=== PATIENT | male | born 1995 | race African-American/Black ===

== ENCOUNTER 2020-07-04 16:12 | Inpatient (IN) | payer MEDICAID, OTHER ==
[~2020-07-04] VITALS: Ht 177.8 cm; Wt 71.8 kg
[2020-07-04 17:26] LABS: AMPHETAMINES LEVEL URINE NEGATIVE (NEGATIVE); BARBITURATES URINE NEGATIVE (NEGATIVE); BENZODIAZEPINES URINE NEGATIVE (NEGATIVE); CANNABINOIDS URINE NEGATIVE (NEGATIVE); COCAINE METABOLITE URINE NEGATIVE (NEGATIVE); METHADONE URINE NEGATIVE (NEGATIVE); OPIATES URINE NEGATIVE (NEGATIVE); PHENCYCLIDINE URINE NEGATIVE (NEGATIVE)
[2020-07-04 17:40] LABS: ACETAMINOPHEN LEVEL < 2.0 UG/ML (10.0-30.0); ALBUMIN 4.5 GM/DL (3.2-5.2); ALT/SGPT 31 U/L (12-78); BILIRUBIN,DIRECT 0.5 MG/DL (0.0-0.2); BILIRUBIN,TOTAL 2.1 MG/DL (0.2-1.0); BLOOD UREA NITROGEN 13 MG/DL (7-18); CALCIUM LEVEL 8.6 MG/DL (8.5-10.1); CARBON DIOXIDE LEVEL 24 MEQ/L (21-32); CHLORIDE LEVEL 109 MEQ/L (98-107); CREATININE FOR GFR 0.87 MG/DL (0.70-1.30); ETHYL ALCOHOL (ETHANOL) 0.181 % (0.000-0.010); GLOMERULAR FILTRATION RATE > 60.0 (>60); GLUCOSE, FASTING 82 MG/DL (70-100); SALICYLATE LEVEL < 1.7 MG/DL (5.0-30.0); SODIUM LEVEL 142 MEQ/L (136-145); THYROID STIMULATING HORMONE 0.295 uIU/ML (0.358-3.740); TOTAL PROTEIN 7.7 GM/DL (6.4-8.2)
[2020-07-04 17:46] LABS: RSV AMPLIFICATION NEGATIVE (NEGATIVE)
[2020-07-04] MEDS ORDERED: LORazepam 2 MG TAB PO STA (18:10)
[2020-07-04] MEDS ORDERED: haloperidoL 5 MG TAB PO STA (18:10)
[2020-07-04] MEDS ORDERED: diphenhydrAMINE 50MG CAP PO ONE (18:15)
[2020-07-04] MEDS ORDERED: AMAN100T PO (18:58)
[2020-07-04] MEDS ORDERED: LATU80TA PO (18:58)
[2020-07-04] MEDS ORDERED: LITH300C PO (18:59)
[2020-07-04 19:14] LABS: HEMATOCRIT 42.6 % (42.0-52.0); HEMOGLOBIN 13.9 g/dl (13.5-17.5); MEAN CORPUSCULAR HEMOGLOBIN 29.6 pg (27.0-33.0); MEAN CORPUSCULAR HGB CONC 32.6 g/dl (32.0-36.5); MEAN CORPUSCULAR VOLUME 90.6 fl (80.0-96.0); PLATELET COUNT, AUTOMATED 343 10^3/uL (150-450); WHITE BLOOD COUNT 4.5 10^3/uL (4.0-10.0)
[2020-07-04] MEDS ORDERED: BENZ0.5T23 PO (20:40)
[2020-07-04] MEDS ORDERED: SAPH1SUB9 SL (20:40)
[2020-07-04] MEDS ORDERED: LORazepam 2 MG TAB PO PRN (22:30)
[2020-07-04] MEDS ORDERED: MAALOX 30 ML SUSP *UDC PO PRN (22:30)
[2020-07-04] MEDS ORDERED: MOM 30ML SUSPENSION UDC PO PRN (22:30)
[2020-07-04] MEDS ORDERED: ACETAMINOPHEN TAB 650MG DOSE (2X325MG) PO PRN (22:30)
[2020-07-05] MEDS: BENZTROPINE 0.5 MG TAB PO SCH ×3 (00:24→21:39)
[2020-07-05] MEDS: THIAMINE 100 MG TAB PO SCH ×3 (00:24→21:39)
[2020-07-05] MEDS: QUEtiapine FUMARATE 50MG TAB PO SCH ×2 (00:25→21:39)
[2020-07-05 03:37] VITALS: BP 127/58
[2020-07-05] MEDS ORDERED: MED REC COMMENT (08:05)
[2020-07-05] MEDS ORDERED: LITH45TASA PO (08:05)
[2020-07-05] MEDS: FOLIC ACID 1 MG TAB PO SCH (10:33)
[2020-07-05] MEDS: LURASIDONE HCL 40 MG TAB (LATUDA) PO SCH (10:33)
[2020-07-05] MEDS: AMANTADINE 100MG TABLET PO SCH (10:33)
[2020-07-05] MEDS: MULTIVITAMINS/MINERALS THERAP 1 TAB PO SCH (10:33)
[2020-07-05 15:57] VITALS: BP 117/59
--- NOTE | 2020-07-05 17:05 | HPEPDOC ---
[facility] Medical History & Physical Date of Admission Jul 04, 2020 Date of Service: Jul 05, 2020 History and Physical CHIEF COMPLAINT: routine medical examination HISTORY OF PRESENT ILLNESS: 25 y/o M with history of schizophrenia brought in by police after being found talking to himself, begging for food, and having bizarre thoughts admitted to the inpatient mental health unit. Hospitalist was asked to do a routine medical exam. Pt requesting qtips to clean his ears. He denies ear pain, tinnitus, ear discharge, fever. no other complaints PAST MEDICAL HISTORY: schizophrenia PAST SURGICAL HISTORY: stitches to his chin s/p accident SOCIAL HISTORY: social etoh 1ppd tobacco use FAMILY HISTORY: unknown ALLERGIES: Please see below. REVIEW OF SYSTEMS: 12 point ROS per HPI . otherwise, negative. HOME MEDICATIONS: Please see below. PHYSICAL EXAMINATION: VITAL SIGNS: see below GENERAL APPEARANCE: HEENT: EOMI moist mm no cervical LAD or thyromegaly cerumen in b/l ears. CARDIOVASCULAR: RRR S1S2 LUNGS: CTAB AEBE ABDOMEN:+BS soft NT ND EXTREMITIES: no c/c/e LABORATORY DATA: See below. ASSESSMENT: 25 y/o M with history of schizophrenia brought in by police after being found talking to himself, begging for food, and having bizarre thoughts admitted to the inpatient mental health unit. Hospitalist was asked to do a routine medical exam. Pt requesting qtips to clean his ears. He denies ear pain, tinnitus, ear discharge, fever. no other complaints Schizophrenia -management by psychiatrist Abnormal TSH -check full thyroid profile to rule out hyperthyroidism. -denies palpitations, diarrhea, and does not require meds for symptoms. cerumen b/l ears -debrox au bid x 5days -qtips prn Hospitalist will sign off. Pls re-consult if new medical issues arise. Vital Signs Vital Signs Date Time Temp Pulse Resp B/P (MAP) Pulse Ox O2 Delivery O2 Flow Rate FiO2 07/05/20 03:37 97 127/58 07/05/20 03:37 97.7 16 98 Room Air Laboratory Data Labs 24H Laboratory Tests 2 07/04/20 16:36: Nucleated Red Blood Cells % (auto) 0.0, Anion Gap 9, Glomerular Filtration Rate > 60.0, Calcium Level 8.6, Total Bilirubin 2.1H, Direct Bilirubin 0.5H, Aspartate Amino Transf (AST/SGOT) 22, Alanine Aminotransferase (ALT/SGPT) 31, Alkaline Phosphatase 112, Total Protein 7.7, Albumin 4.5, Albumin/Globulin Ratio 1.4, Thyroid Stimulating Hormone (TSH) 0.295L, Salicylates Level < 1.7L, Urine Opiates Screen NEGATIVE, Urine Methadone Screen NEGATIVE, Acetaminophen Level < 2.0L, Urine Barbiturates Screen NEGATIVE, Urine Phencyclidine Screen NEGATIVE, Urine Amphetamines Screen NEGATIVE, Urine Benzodiazepines Screen NEGATIVE, Urine Cocaine Metabolite Screen NEGATIVE, Urine Cannabinoids Screen NEGATIVE, Ethyl Alcohol Level 0.181H, Coronavirus (COVID-19)(PCR) NEGATIVE, Influenza Type A (RT-PCR) NEGATIVE, Influenza Type B (RT-PCR) NEGATIVE, Respiratory Syncytial Virus (PCR) NEGATIVE CBC/BMP Laboratory Tests 07/04/20 16:36 Home Medications Scheduled Amantadine HCl (Amantadine) 100 Mg Tablet, 100 MG PO DAILY Asenapine Maleate (Saphris) 2.5 Mg Tab.subl, 2.5 MG SL DAILY Benztropine Mesylate (Benztropine Mesylate) 0.5 Mg Tablet, 0.5 MG PO BID Cunningham Carbonate (Cunningham Carbonate ER) 450 Mg Tablet.er, 900 MG PO QHS for MOOD Lurasidone HCl (Latuda) 80 Mg Tablet, 80 MG PO DAILY Miscellaneous Medications [Med Rec Comment] , for . OBTAINED LIST FROM MOTHER Allergies Coded Allergies: risperidone (Verified Allergy, Severe, ANAPHYLAXIS, 07/05/20) A-FIB/CHADSVASC A-FIB History Current/History of A-Fib/PAF?: No Current PO Anticoag Therapy: No Age/Risk Factor Scoring CHADSVASC: CHADSVASC Response (Comments) Value Age Risk Factor Age < 65 years old 0 Gender Risk Factor Male 0 Hx of CHF No 0 Hx of HTN No 0 Hx of Stroke/TIA/or VTE No 0 Hx of Diabetes No 0 Hx of Vascular Disease No 0 Total 0 Treatment Treatment ordered: NONE RYAN MAURER MD Jul 05, 2020 15:45
[2020-07-05] MEDS: CARBAMIDE PEROXIDE 6.5% OTIC SOLN 15ML AU SCH (18:00)
[2020-07-05 20:30] VITALS: BP 123/76
[2020-07-05] MEDS: LITHIUM CARBONATE 450 MG **CR** TAB PO SCH (21:39)
[2020-07-06 06:33] VITALS: BP 98/62
[2020-07-06] MEDS: FOLIC ACID 1 MG TAB PO SCH (08:25)
[2020-07-06] MEDS: AMANTADINE 100MG TABLET PO SCH (08:25)
[2020-07-06] MEDS: MULTIVITAMINS/MINERALS THERAP 1 TAB PO SCH (08:25)
[2020-07-06] MEDS: THIAMINE 100 MG TAB PO SCH ×2 (08:26→20:21)
[2020-07-06] MEDS: CARBAMIDE PEROXIDE 6.5% OTIC SOLN 15ML AU SCH ×2 (08:26→20:21)
[2020-07-06] MEDS: LURASIDONE HCL 40 MG TAB (LATUDA) PO SCH (08:26)
[2020-07-06] MEDS: BENZTROPINE 0.5 MG TAB PO SCH ×2 (08:26→20:22)
--- NOTE | 2020-07-06 08:28 | MHHPE ---
[facility] HISTORY AND PHYSICAL DATE OF ADMISSION: 07/04/2020 DATE OF EVALUATION: 07/05/2020 HISTORY OF PRESENT ILLNESS: This is a 25-year-old man who was admitted after he was found by the police wandering the streets yelling at people who he thought were trying to kill him. He was telling the police that people were trying to shoot him on the way to the emergency room. He kept on stating that utility workers were out to get him. Patient stated that he needed a gun to get rid of the demon seeds. Patient's mother told police that the patient has a history of schizophrenia and that he has been off of his medications. Police state that yesterday they were called to [facility] where a man there had stolen beer and was eating food inside the store without paying for it. The police thought that he was slightly intoxicated and they gave him a ride home without charges. The patient's mom stated that the patient was diagnosed schizophrenic in 2012. He has had one prior psychiatric admission in [place] in September 2019. Mom says he stopped taking medications since February 2020. He moved here from [place] last year. He lives alone. Apparently, yesterday she did pick him up from his apartment in [facility] because she received a call that the patient was not doing well. She reports that the patient refuses to take medications and that he started to use some drugs and alcohol. While in the emergency room, he became highly agitated to the point where he required chemical restraints. Today, the patient tells me that he is okay, actually he is just very quiet and it is very difficult to get him to say much and get much more information regarding what brought him to the hospital. The patient apparently is on the following medications, or at least was on these medications until he stopped taking them in February. He was attending [facility]. He was on: - Latuda 80 mg every afternoon - amantadine 100 mg once daily - lithium 900 mg nightly - Saphris 2.5 mg sublingual nightly - Cogentin 0.5 mg twice a day PAST PSYCHIATRIC HISTORY: As stated by patient's mom, he was admitted to [facility] in September 2019 and that is probably his only other psychiatric admission. He did deny that he has ever tried to kill himself. FAMILY HISTORY: Unable to obtain. MEDICAL HISTORY: I did not elicit any acute medical problems. ABUSE HISTORY: The patient denies any history of any abuse. SUBSTANCE ABUSE: The patient apparently had been drinking when he was brought to the hospital and mom says that he has been drinking lately and that this tends to go along with his decompensation in the past. He did tell me that he was not using drugs and his toxicology screen was negative for any drugs. REVIEW OF SYSTEMS: Vital signs: Blood pressure 127/58, pulse 97, respirations 16. Appearance: He did not appear to be in any apparent distress. Neuromuscular system: I did not notice any involuntary movements of the extremities or any problems with his gait. All other systems were reviewed and found to be negative. MENTAL STATUS EXAMINATION: This patient is alert and oriented times three. He is guarded. Eye contact fair. He responds with a simple one or two word answer that appears to be appropriate but he is not spontaneous at all. His mood was okay. Affect is flat. He is paranoid. I did not elicit any suicidal ideations or homicidal ideations. Concentration is fair. Memory is grossly intact. Insight and judgment poor. DIAGNOSES: Schizophrenia. Rule out alcohol use disorder. TREATMENT PLAN: At this point, we will continue to monitor the patient for his paranoid thoughts. The patient is willing to start all of the above noted medications. I will make one change however, instead of Saphris 2.5 mg nightly I am going to give him Seroquel 50 mg nightly because I think it is more sedating and it might help him sleep better. The patient did say that he received Seroquel 50 mg last night and he really felt that it helped him sleep and he wants me to continue it. The patient will be discharged with appropriate followup once stable.
[2020-07-06] MEDS ORDERED: INFLUENZA QUADRIVALENT PF VACCINE 0.5ML SYRINGE IM ONE (09:00)
[2020-07-06 09:53] LABS: T UPTAKE 36 % (33-40); THYROID STIMULATING HORMONE 0.359 uIU/ML (0.358-3.740); THYROXINE (T4) 5.6 UG/DL (4.5-12.0)
[2020-07-06 12:47] LABS: THYROGLOBULIN ANTIBODY < 15.0 U/ML (<60.0)
[2020-07-06] MEDS: CARIPRAZINE 1.5MG CAPSULE (VRAYLAR) PO SCH (15:50)
[2020-07-06 17:43] VITALS: BP 121/68
[2020-07-06] MEDS: QUEtiapine FUMARATE 50MG TAB PO SCH (20:21)
[2020-07-06] MEDS: LITHIUM CARBONATE 450 MG **CR** TAB PO SCH (20:22)
[2020-07-07 06:23] VITALS: BP 149/80
[2020-07-07] MEDS: CARIPRAZINE 1.5MG CAPSULE (VRAYLAR) PO SCH (08:24)
[2020-07-07] MEDS: AMANTADINE 100MG TABLET PO SCH (08:24)
[2020-07-07] MEDS: BENZTROPINE 0.5 MG TAB PO SCH ×2 (08:24→21:52)
[2020-07-07] MEDS: THIAMINE 100 MG TAB PO SCH (08:25)
[2020-07-07] MEDS: MULTIVITAMINS/MINERALS THERAP 1 TAB PO SCH (08:25)
[2020-07-07] MEDS: FOLIC ACID 1 MG TAB PO SCH (08:25)
[2020-07-07] MEDS: CARBAMIDE PEROXIDE 6.5% OTIC SOLN 15ML AU SCH ×2 (08:26→21:53)
[2020-07-07] MEDS ORDERED: CARIPRAZINE 1.5MG CAPSULE (VRAYLAR) PO SCH (09:00)
[2020-07-07] MEDS: OLANZapine ORAL DISINTEGRATING TAB 5MG PO PRN (13:18)
[2020-07-07 17:00] VITALS: BP 130/76
--- NOTE | 2020-07-07 17:21 | MHIPNPDOC ---
[facility] Progress Note Progress Note DATE OF SERVICE: 07/07/20 HISTORY: : This is a 25-year-old man who was admitted after he was found by the police wandering the streets yelling at people who he thought were trying to kill him. He was telling the police that people were trying to shoot him on the way to the emergency room. He kept on stating that utility workers were out to get him. Patient stated that he needed a gun to get rid of the demon seeds. Patient's mother told police that the patient has a history of schizophrenia and that he has been off of his medications. Police state that yesterday they were called to [facility] where a man there had stolen beer and was eating food inside the store without paying for it. The police thought that he was slightly intoxicated and they gave him a ride home without charges. The patient's mom stated that the patient was diagnosed schizophrenic in 2012. He has had one prior psychiatric admission in [place] in September 2019. Mom says he stopped taking medications since February 2020. He moved here from [place] last year. He lives alone. Apparently, yesterday she did pick him up from his apartment in [facility] because she received a call that the patient was not doing well. She reports that the patient refuses to take medications and that he started to use some drugs and alcohol. While in the emergency room, he became highly agitated to the point where he required chemical restraints. Today, the patient tells me that he is okay, actually he is just very quiet and it is very difficult to get him to say much and get much more information regarding what brought him to the hospital. VITAL SIGNS: See below. CURRENT MEDICATIONS: See below. MENTAL STATUS EXAMINATION: Patient is a 5-year-old man who was admitted after he was found by the police wandering the streets yelling at people who he thought were trying to kill him. He was found in the room, sleeping. Attempted to get him to engage in conversation but he had limited to say and dozed off to sleep many times in the interview Speech: Is garbled at times, due to drowsiness Language skills are appropriate Thought processes including: linear Thought content: refusing to answer Abstract reasoning, and computation: unable to assess Description of associations: in report he is delusional Description of abnormal or psychotic thoughts: refusing to answer questions about this Judgment: poor Insight: poor Orientation: alert and oriented Recent and remote memory: fair Attention span and concentration: poor Language: fair Fund of knowledge: average Mood: flat/uninterested Affect: flat DIAGNOSES: Schizophrenia. Rule out alcohol use disorder. ASSESSMENT: Approached patient today for interview, he was found lying in bed, had much difficulty staying awake for the interview or was refusing to speak to me. His speech was garbled and it was difficult to understand him. He was guarded and superficial many times in the interview states that he was being followed by people and that they continue to watch him. Patient is observed to be paranoid and delusional and refuses to engage in the interview. MANAGEMENT PLAN: Continue medications, will discharge patient when he is stable TIME SPENT: 25 minutes. Vital Signs Vital Signs Date Time Temp Pulse Resp B/P (MAP) Pulse Ox O2 Delivery O2 Flow Rate FiO2 07/07/20 06:23 98.7 70 14 149/80 (103) 98 Room Air Current Medications Current Medications Medications (Trade) Dose Ordered Sig/Shante Route PRN Reason Start Time Stop Time Status Last Admin Dose Admin Acetaminophen (Tylenol Tab) 650 mg Q6HP PRN PO HEADACHE or DISCOMFORT 07/04/20 22:30 Al Hydrox/Mg Hydrox/Simethicone (Mylanta) 30 ml Q4HP PRN PO HEARTBURN/INDIGESTION 07/04/20 22:30 Amantadine HCl (Symmetrel) 100 mg DAILY PO 07/05/20 09:00 07/07/20 08:24 Benztropine Mesylate (Cogentin) 0.5 mg BID PO 07/04/20 21:00 07/07/20 08:24 Carbamide Peroxide (Debrox) 10 drop BID AU 07/05/20 17:00 07/10/20 09:01 07/07/20 08:26 Cariprazine (Vraylar) 1.5 mg DAILY PO 07/06/20 14:15 07/07/20 08:24 Cariprazine (Vraylar) 1.5 mg DAILY PO 07/07/20 09:00 07/06/20 14:24 DC Folic Acid (Folic Acid) 1 mg DAILY PO 07/05/20 09:00 07/07/20 08:25 Haloperidol (Haldol) 5 mg STAT STAT PO 07/04/20 18:10 07/04/20 18:12 DC 07/04/20 18:17 Home Med (Med Rec Complete!) ASDIRECTED XX 07/04/20 20:45 07/04/20 20:50 DC Samoset Carbonate (Eskalith-Cr) 900 mg QHS PO 07/05/20 21:00 07/06/20 20:22 Lorazepam (Ativan) 1 mg Q4H PRN PO agitation/anxiety 07/04/20 22:30 Lorazepam (Ativan) 2 mg ASDIRECTED PRN PO SEE PROTOCOL 07/04/20 22:30 Lorazepam (Ativan) 2 mg STAT STAT PO 07/04/20 18:10 07/04/20 18:12 DC 07/04/20 18:17 Lurasidone HCl (Latuda) 80 mg DAILY PO 07/05/20 09:00 07/06/20 14:24 DC 07/06/20 08:26 Magnesium Hydroxide (Milk Of Magnesia) 30 ml DAILYPRN PRN PO CONSTIPATION 07/04/20 22:30 Multivitamins (Theragram-M) 1 tab DAILY PO 07/05/20 09:00 07/07/20 08:25 Olanzapine (ZyPREXA ZYDIS) 10 mg Q4HP PRN PO AGITATION/ANXIETY 07/04/20 22:30 07/07/20 13:18 Quetiapine Fumarate (SEROquel) 50 mg QHS PO 07/04/20 21:00 07/06/20 20:21 Thiamine HCl (Thiamine HCl) 100 mg BID PO 07/04/20 21:00 07/07/20 09:01 DC 07/07/20 08:25 Trazodone HCl (Desyrel) 50 mg QHSP PRN PO INSOMNIA 07/04/20 22:30 Allergies Coded Allergies: risperidone (Verified Allergy, Severe, ANAPHYLAXIS, 07/05/20) ARELI GARCIA NP Jul 07, 2020 17:17
[2020-07-07] MEDS: QUEtiapine FUMARATE 50MG TAB PO SCH (21:51)
[2020-07-07] MEDS: LITHIUM CARBONATE 450 MG **CR** TAB PO SCH (21:52)
[2020-07-08 06:20] VITALS: BP 99/58
[2020-07-08] MEDS: MULTIVITAMINS/MINERALS THERAP 1 TAB PO SCH (08:43)
[2020-07-08] MEDS: CARIPRAZINE 1.5MG CAPSULE (VRAYLAR) PO SCH (08:43)
[2020-07-08] MEDS: BENZTROPINE 0.5 MG TAB PO SCH ×2 (08:43→20:06)
[2020-07-08] MEDS: AMANTADINE 100MG TABLET PO SCH (08:43)
[2020-07-08] MEDS: CARBAMIDE PEROXIDE 6.5% OTIC SOLN 15ML AU SCH ×2 (08:43→20:06)
[2020-07-08] MEDS: FOLIC ACID 1 MG TAB PO SCH (08:43)
[2020-07-08] MEDS: OLANZapine ORAL DISINTEGRATING TAB 5MG PO PRN ×2 (10:11→23:54)
--- NOTE | 2020-07-08 14:13 | MHIPN ---
[facility] PROGRESS NOTE DATE: 07/06/2020 HISTORY OF PRESENT ILLNESS: The patient continues to be paranoid. Today he actually told his nurse that he had had an argument with a friend who sent people to watch him and that they were masquerading as cable men. The patient is a little more spontaneous today, but he is still quite paranoid. MENTAL STATUS EXAM: He is alert and oriented times 3. There is no formal thought disorder. Mood is okay. Affect flat. He remains paranoid. He is not suicidal or homicidal. Concentration is fair. Memory intact. Insight and judgment poor. DIAGNOSES: 1. Schizophrenia. 2. Rule out alcohol use disorder. TREATMENT PLAN: At this point we will continue to monitor the patient for his paranoid thinking. The patient agreed to a trial of Vraylar 1.5 mg once daily. I had suggested that we start him on a equipment operator intermodal yard parenteral injection, but he was not receptive to this and so the patient agreed to the Vraylar. He said he had pain on Risperdal before and had side effects and so he was not receptive to Invega Sustenna and he said also he had side effects with Abilify and was not receptive to that. I felt that a parenteral injection might be good because this patient has a history of being noncompliant with his medication.
[2020-07-08] MEDS: LORazepam 1 MG TAB PO PRN ×2 (15:53→23:17)
[2020-07-08 17:50] VITALS: BP 107/66
[2020-07-08] MEDS: QUEtiapine FUMARATE 50MG TAB PO SCH (20:06)
[2020-07-08] MEDS: LITHIUM CARBONATE 450 MG **CR** TAB PO SCH (20:07)
[2020-07-08] MEDS: traZODone 50 MG TAB PO PRN (23:54)
[2020-07-09 06:00] VITALS: BP 133/76
[2020-07-09] MEDS: CARIPRAZINE 3MG CAPSULE (VRAYLAR) PO SCH (08:17)
[2020-07-09] MEDS: MULTIVITAMINS/MINERALS THERAP 1 TAB PO SCH (08:17)
[2020-07-09] MEDS: BENZTROPINE 0.5 MG TAB PO SCH ×2 (08:17→21:54)
[2020-07-09] MEDS: FOLIC ACID 1 MG TAB PO SCH (08:17)
[2020-07-09] MEDS: CARBAMIDE PEROXIDE 6.5% OTIC SOLN 15ML AU SCH ×2 (08:17→21:00)
[2020-07-09] MEDS: AMANTADINE 100MG TABLET PO SCH (08:17)
[2020-07-09] MEDS: LORazepam 1 MG TAB PO PRN (08:18)
--- NOTE | 2020-07-09 14:43 | MHIPN ---
[facility] PROGRESS NOTE DATE: 07/08/2020 HISTORY OF PRESENT ILLNESS: The patient today states that he is "a little tired." He says he did have some frequent awakening at night. She was definitely very paranoid and kept on talking about a lot of mormonism thoughts. Mostly a lot of stuff that is found in the Bible and also upset about some political stuff. I tried to redirect him to talk about the stuff that he had said even yesterday that people are watching him, that people are posing like utility workers, but when I asked him about that he told me that he had not said that before and I could not elicit it today. So far he is tolerating the Vraylar 1.5 mg and he is agreeable to increasing it to 3 mg. MENTAL STATUS EXAM: He is alert and oriented times 3. His eye contact is fairly good. Psychomotor activity was normal. He did have some pressured speech. There were no suicidal or homicidal ideations. He says his mood was tired. Affect appeared to be appropriate. He did seem to be becoming increasingly agitated as he talked about what appears to be his paranoid delusions. Concentration is fair. Memory is intact. Insight and judgment poor. DIAGNOSES: 1. Schizophrenia. 2. Rule out alcohol use disorder. TREATMENT PLAN: At this point the patient continues to be psychotic. He is agreeable to increase the Vraylar to 3 mg once daily.
[2020-07-09] MEDS ORDERED: LORazepam 2 MG TAB PO STA (15:12)
[2020-07-09] MEDS ORDERED: diphenhydrAMINE 50MG CAP PO STA (15:12)
[2020-07-09 18:00] VITALS: BP 148/90
[2020-07-09] MEDS: LITHIUM CARBONATE 450 MG **CR** TAB PO SCH (21:00)
[2020-07-09] MEDS: QUEtiapine FUMARATE 50MG TAB PO SCH (21:55)
[2020-07-10] VITALS (7 sets, daily range): BP systolic 99–131; BP diastolic 63–72
[2020-07-10] MEDS ORDERED: QUEtiapine FUMARATE 50MG TAB PO ONE (02:30)
[2020-07-10] MEDS ORDERED: LORazepam 2 MG/ML VIAL IM STA (03:26)
[2020-07-10] MEDS ORDERED: diphenhydrAMINE 50MG/ML VIAL (J1200) IM STA (03:26)
[2020-07-10] MEDS ORDERED: HALOPERIDOL 5MG/ML VIAL (J1630 PER 1) IM STA (03:26)
[2020-07-10] MEDS ORDERED: HALOPERIDOL 5MG/ML VIAL (J1630 PER 1) As Ordered ONE (03:28)
[2020-07-10] MEDS ORDERED: diphenhydrAMINE 50MG/ML VIAL (J1200) As Ordered ONE (03:30)
[2020-07-10] MEDS ORDERED: LORazepam 2 MG/ML VIAL As Ordered ONE (03:30)
--- NOTE | 2020-07-10 03:37 | IPNPDOC ---
Text Note Date of Service The patient was seen on 07/10/20. NOTE PSYCH CERTIFICATION FACE TO FACE: yes PHYSICIAN ASSESSMENT: The patient was agitated, violent towards staff and not following verbal instructions GEN: irritable / yelling REASON FOR RESTRAINT: The patient was a danger to the staff. DE-ESCALATION INTERVENTIONS ATTEMPTED BEFORE USE OF RESTRAINTS: verbal redirection [MECHANICAL AND/OR CHEMICAL] RESTRAINTS USED LENGTH OF TIME ORDERED IN RESTRAINTS: 4 hours WHEN TO DISCONTINUE RESTRAINTS: When the patient is no longer a threat to to herself or others Post evaluation of restraint due in 24 hours. VS,Fishbone, I+O VS, Fishbone, I+O Vital Signs Date Time Temp Pulse Resp B/P (MAP) Pulse Ox O2 Delivery O2 Flow Rate FiO2 07/09/20 18:00 99.0 72 15 148/90 (109) 100 07/08/20 06:20 Room Air FREDDY MCGINNIS MD Jul 10, 2020 03:37
--- NOTE | 2020-07-10 08:27 | MHIPN ---
[facility] PROGRESS NOTE DATE: 07/09/2020 HISTORY OF PRESENT ILLNESS: The patient today is more calmer than he was yesterday. Speech is less pressured. He tells me that he is feeling okay. His speech tends to be a little more mumbled and sometimes it is hard to understand what he is saying. Today denying that anybody has been watching him so I do not know if he is less paranoid or he is just more guarded today. MENTAL STATUS EXAM: He is alert and oriented times 3. Eye contact is fairly good. Psychomotor activity is normal. As I said today he is not agitated and his speech is not as pressured as it was yesterday. He says that he is doing good. His affect is flat. As I said I am not eliciting paranoid thoughts today. He is not suicidal or homicidal. Concentration is fair. Insight and judgment is poor. DIAGNOSES: 1. Schizophrenia. 2. Rule out schizoaffective disorder versus bipolar disorder. TREATMENT PLAN: At this point we will continue to monitor the patient for paranoid thoughts. We will continue the current medications and continue to titrate them as indicated.
[2020-07-10] MEDS: AMANTADINE 100MG TABLET PO SCH (09:00)
[2020-07-10] MEDS: FOLIC ACID 1 MG TAB PO SCH (09:00)
[2020-07-10] MEDS: BENZTROPINE 0.5 MG TAB PO SCH ×2 (09:00→22:34)
[2020-07-10] MEDS: MULTIVITAMINS/MINERALS THERAP 1 TAB PO SCH (09:00)
[2020-07-10] MEDS: CARBAMIDE PEROXIDE 6.5% OTIC SOLN 15ML AU SCH (09:00)
[2020-07-10] MEDS: CARIPRAZINE 3MG CAPSULE (VRAYLAR) PO SCH (09:00)
[2020-07-10] MEDS: OLANZapine ORAL DISINTEGRATING TAB 5MG PO PRN (19:31)
[2020-07-10] MEDS: QUEtiapine FUMARATE 50MG TAB PO SCH (22:34)
[2020-07-10] MEDS: QUEtiapine FUMARATE 100 MG TAB PO SCH (22:34)
[2020-07-10] MEDS: LITHIUM CARBONATE 450 MG **CR** TAB PO SCH (22:34)
[2020-07-11 06:59] VITALS: BP 139/75
[2020-07-11] MEDS: AMANTADINE 100MG TABLET PO SCH (08:22)
[2020-07-11] MEDS: MULTIVITAMINS/MINERALS THERAP 1 TAB PO SCH (08:22)
[2020-07-11] MEDS: FOLIC ACID 1 MG TAB PO SCH (08:22)
[2020-07-11] MEDS: BENZTROPINE 0.5 MG TAB PO SCH ×2 (08:22→20:13)
[2020-07-11] MEDS: OLANZapine ORAL DISINTEGRATING TAB 5MG PO PRN (10:45)
[2020-07-11 17:49] VITALS: BP 144/82
[2020-07-11] MEDS: LITHIUM CARBONATE 450 MG **CR** TAB PO SCH (20:13)
[2020-07-11] MEDS: QUEtiapine FUMARATE 50MG TAB PO SCH (20:14)
[2020-07-11] MEDS: QUEtiapine FUMARATE 100 MG TAB PO SCH (20:14)
[2020-07-12] MEDS: OLANZapine ORAL DISINTEGRATING TAB 5MG PO PRN ×2 (02:04→15:14)
[2020-07-12 06:48] VITALS: BP 139/74
[2020-07-12] MEDS: BENZTROPINE 0.5 MG TAB PO SCH ×2 (08:10→20:23)
[2020-07-12] MEDS: MULTIVITAMINS/MINERALS THERAP 1 TAB PO SCH (08:10)
[2020-07-12] MEDS: FOLIC ACID 1 MG TAB PO SCH (08:11)
[2020-07-12] MEDS: AMANTADINE 100MG TABLET PO SCH (08:11)
[2020-07-12] MEDS: LITHIUM CARBONATE 450 MG **CR** TAB PO SCH (20:23)
[2020-07-12] MEDS: QUEtiapine FUMARATE 100 MG TAB PO SCH (20:23)
[2020-07-12] MEDS: QUEtiapine FUMARATE 50MG TAB PO SCH (20:23)
[2020-07-12 20:56] VITALS: BP 148/92
[2020-07-13] MEDS: LORazepam 1 MG TAB PO PRN ×2 (06:39→11:30)
[2020-07-13 06:54] VITALS: BP 102/78
[2020-07-13] MEDS: AMANTADINE 100MG TABLET PO SCH (08:04)
[2020-07-13] MEDS: MULTIVITAMINS/MINERALS THERAP 1 TAB PO SCH (08:04)
[2020-07-13] MEDS: BENZTROPINE 0.5 MG TAB PO SCH ×2 (08:04→21:53)
[2020-07-13] MEDS: FOLIC ACID 1 MG TAB PO SCH (08:05)
[2020-07-13] MEDS: OLANZapine ORAL DISINTEGRATING TAB 5MG PO PRN ×2 (08:25→15:44)
[2020-07-13 17:17] VITALS: BP 119/87
[2020-07-13] MEDS: QUEtiapine FUMARATE 100 MG TAB PO SCH (21:52)
[2020-07-13] MEDS: LITHIUM CARBONATE 450 MG **CR** TAB PO SCH (21:53)
[2020-07-14 06:22] VITALS: BP 98/64
[2020-07-14] MEDS: AMANTADINE 100MG TABLET PO SCH (08:35)
[2020-07-14] MEDS: OLANZapine ORAL DISINTEGRATING TAB 5MG PO PRN ×2 (08:35→16:03)
[2020-07-14] MEDS: BENZTROPINE 0.5 MG TAB PO SCH ×2 (08:36→20:57)
[2020-07-14] MEDS: MULTIVITAMINS/MINERALS THERAP 1 TAB PO SCH (08:36)
[2020-07-14] MEDS: FOLIC ACID 1 MG TAB PO SCH (08:36)
--- NOTE | 2020-07-14 09:15 | MHIPN ---
PROGRESS NOTE DATE: 07/13/2020 The patient has continued to have episodes where he gets somewhat agitated of staff, has noted that there are times that he is walking in the hallways, talking very loudly to himself but they when they ask him, he denies that he is hearing any voices but appears to be possibly hallucinating. The patient just requested and received some Zyprexa 10 mg p.r.n. and at this point, he tells me that he is doing okay and he has no complaints. He is guarded. He denies having any thoughts that anybody was watching him but again, I do not know if he is just minimizing his symptoms. MENTAL STATUS EXAM: The patient is alert and oriented x3. Eye contact appears ecchymotic due to the SEPs. The patient states that his mood is okay. Affect is flat. He denies it but I suspect he still has some paranoid delusions, that he is not suicidal, homicidal. Concentration is fair. Insight and judgment are poor. DIAGNOSIS: Schizophrenia and rule out schizoaffective disorder versus bipolar disorder. TREATMENT PLAN: We will go ahead and increase the Seroquel to 200 mg q.h.s. and we will continue to titrate the medication as indicated.
--- NOTE | 2020-07-14 10:43 | MHIPN ---
[facility] PROGRESS NOTE DATE: 07/10/20 HISTORY OF PRESENT ILLNESS: The patient last night became aggressive and had to be placed on physical and chemical restraints yesterday. The patient refused to take his Vraylar this morning. In reviewing the records the patient's had called staff yesterday and feels that the patient is worse since the Vraylar was started stating he had a similar problem when treated with Cogentin before and the dose had to be decreased. The patient today tells me that he is no longer having any thoughts that people were watching him or following him, but I do not know how reliable he is. At times his speech is difficult to understand because he tends to mumble and you have to ask him to repeat himself again. He does not appear to be agitated today. MENTAL STATUS EXAM: He is alert and oriented times 3. Eye contact is fair. Psychomotor activity was decreased. There is no formal thought disorder noted. He says his mood was good. Affect flat. I am not eliciting paranoid thoughts today, but again I do not know if he is just being guarded. He denies suicidal or homicidal. Concentration is fair. Memory is intact. Insight and judgment poor. DIAGNOSES: 1. Schizophrenia. 2. Rule out schizoaffective disorder versus bipolar disorder. TREATMENT PLAN: At this point I will discontinue the Vraylar since the patient's mother feels that he is doing worse since we started the Vraylar. He has already been on Seroquel 50 mg actually 100 mg and so we will increase Seroquel to 150 mg at bedtime to see if this helps him both with sleep and also with his psychotic and aggressive behavior.
[2020-07-14 16:30] VITALS: BP 135/71
[2020-07-14] MEDS: traZODone 50 MG TAB PO PRN (20:57)
[2020-07-14] MEDS: QUEtiapine FUMARATE 100 MG TAB PO SCH (20:57)
[2020-07-14] MEDS: LITHIUM CARBONATE 450 MG **CR** TAB PO SCH (20:58)
[2020-07-15 06:35] VITALS: BP 123/64
[2020-07-15] MEDS: AMANTADINE 100MG TABLET PO SCH (08:17)
[2020-07-15] MEDS: FOLIC ACID 1 MG TAB PO SCH (08:17)
[2020-07-15] MEDS: MULTIVITAMINS/MINERALS THERAP 1 TAB PO SCH (08:17)
[2020-07-15] MEDS: BENZTROPINE 0.5 MG TAB PO SCH ×2 (08:17→20:32)
[2020-07-15] MEDS: OLANZapine ORAL DISINTEGRATING TAB 5MG PO PRN (10:42)
--- NOTE | 2020-07-15 10:42 | MHIPN ---
[facility] PROGRESS NOTE DATE: 07/14/20 HISTORY OF PRESENT ILLNESS: Today the patient was lying down in bed, but he did arouse easily, but he did tell me that he was feeling "tired." He appeared to be very guarded. I asked him if he was still feeling that people were watching him and he told me no, but again I do not know how reliable he is at this point. Of note was that he requested Zyprexa Zydis at 8:30 this morning, but overall he has been not agitated. MENTAL STATUS EXAM: This patient is alert and oriented times 3. Eye contact is fair. Psychomotor activity is decreased. There is no formal thought disorder noted. Mood is okay. Affect is flat. He denies feeling that people are following hi, but I am not sure how reliable he is at this point. Concentration is fair. Memory intact. He denies suicidal or homicidal ideations. Insight and judgment is poor. DIAGNOSES: 1. Schizophrenia. 2. Rule out schizoaffective disorder versus bipolar disorder. TREATMENT PLAN: At this point we will continue his current medications. I just increased his Seroquel last night to 200 mg at bedtime and we will continue to monitor the patient. As I said I still that this patient is delusional, but is just being guarded at this point.
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
[2020-07-15 16:27] VITALS: BP 126/74
[2020-07-15] MEDS: LITHIUM CARBONATE 450 MG **CR** TAB PO SCH (20:32)
[2020-07-15] MEDS: traZODone 50 MG TAB PO PRN (20:32)
[2020-07-15] MEDS: QUEtiapine FUMARATE 100 MG TAB PO SCH (20:32)
[2020-07-16 06:00] VITALS: BP 134/81
[2020-07-16] MEDS: AMANTADINE 100MG TABLET PO SCH (08:42)
[2020-07-16] MEDS: FOLIC ACID 1 MG TAB PO SCH (08:42)
[2020-07-16] MEDS: MULTIVITAMINS/MINERALS THERAP 1 TAB PO SCH (08:42)
[2020-07-16] MEDS: BENZTROPINE 0.5 MG TAB PO SCH ×2 (08:42→20:27)
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
[2020-07-16 17:57] VITALS: BP 123/72
[2020-07-16] MEDS: QUEtiapine FUMARATE 100 MG TAB PO SCH (20:27)
[2020-07-16] MEDS: LITHIUM CARBONATE 450 MG **CR** TAB PO SCH (20:27)
[2020-07-16] MEDS: traZODone 50 MG TAB PO PRN (20:28)
[2020-07-17 06:00] VITALS: BP 124/81
[2020-07-17] MEDS: FOLIC ACID 1 MG TAB PO SCH (09:00)
[2020-07-17] MEDS: BENZTROPINE 0.5 MG TAB PO SCH ×2 (09:01→20:35)
[2020-07-17] MEDS: MULTIVITAMINS/MINERALS THERAP 1 TAB PO SCH (09:01)
[2020-07-17] MEDS: AMANTADINE 100MG TABLET PO SCH (09:01)
[2020-07-17 16:12] VITALS: BP 128/84
[2020-07-17] MEDS: LITHIUM CARBONATE 450 MG **CR** TAB PO SCH (20:35)
[2020-07-17] MEDS: traZODone 50 MG TAB PO PRN (20:35)
[2020-07-17] MEDS: QUEtiapine FUMARATE 100 MG TAB PO SCH (20:36)
--- NOTE | 2020-07-17 21:11 | MHIPNPDOC ---
[facility] Progress Note Progress Note Subjective: 25 year old male with a history of Schizophrenia who was brought into the [facility] ED by police, activated by 911 for being in a disorganized/manic state. Rosa has started to shown a significant amount of improvement since becoming compliant with his new medication regimen. He is still somewhat disorganized, but overall, his thought processes and behavior are more organized and he has been motivated to take both his [place] and Seroquel. Appetite and sleep are improved. No episodes of self-injury or aggression; denies any current passive or active suicidal or homicidal ideation, intent or plan; still endorsing racing thoughts and appears to be distractible but denies any side effects from his med regimen. Just waiting for my mother to take me back inshes willing to take me so long as Im on good behavior; I want to get my life back on track. Objective: Patient was seen and evaluated, he is alert and oriented times three, cognition good, good eye contact, cooperative with assessment, normal body habitus, appears stated age, no psychomotor abnormalities; Speech is normal in production, rate and volume; TP are somewhat disorganized but more goal directed; Mood: better, affect: bright/pleasant; TC: some paranoid delusions still present but have decreased in intensity; denies any current passive or active suicidal or homicidal ideation, intent or plan; denies AH/VH/TH but does still appear somewhat still internally preoccupied, responding to internal stimuli; insight, impulse control and judgment are fair/improving relative to when he was first admitted. A/P: 25 year old male with a history of Schizophrenia who was brou ght into the [facility] ED by police, activated by 911 for being in a disorganized/manic state. 1) Extensive psychoeducation given in terms of all risks, benefits and alternatives to all modalities of treatment and he vocalized understanding. 2) [place] continued at 900 mg qhs; level drawn today which is slightly subtherapeutic at 0.56. Seroquel increased to 300 mg qhs to better help alleviate psychotic sxs 3) Continue to encourage group participation in community milieu with other peers 4) Continue to collaborate with treatment team and Hospitalist on unit 5) He will be discharged to his [facility] residence, with aftercare in place, once clinically stable. Total time spent: 60 minutes Vital Signs Vital Signs Date Time Temp Pulse Resp B/P (MAP) Pulse Ox O2 Delivery O2 Flow Rate FiO2 07/17/20 16:12 98.7 90 18 128/84 (99) 99 Room Air Laboratory Data 24H Labs Laboratory Tests 2 07/17/20 10:42: [place] Level 0.56L Current Medications Current Medications Medications (Trade) Dose Ordered Sig/Shante Route PRN Reason Start Time Stop Time Status Last Admin Dose Admin Acetaminophen (Tylenol Tab) 650 mg Q6HP PRN PO HEADACHE or DISCOMFORT 07/04/20 22:30 Al Hydrox/Mg Hydrox/Simethicone (Mylanta) 30 ml Q4HP PRN PO HEARTBURN/INDIGESTION 07/04/20 22:30 07/09/20 05:18 Amantadine HCl (Symmetrel) 100 mg DAILY PO 07/05/20 09:00 07/17/20 09:01 Benztropine Mesylate (Cogentin) 0.5 mg BID PO 07/04/20 21:00 07/17/20 20:35 Carbamide Peroxide (Debrox) 10 drop BID AU 07/05/20 17:00 07/10/20 09:01 DC 07/09/20 08:17 Cariprazine (Vraylar) 1.5 mg DAILY PO 07/06/20 14:15 07/08/20 13:42 DC 07/08/20 08:43 Cariprazine (Vraylar) 1.5 mg DAILY PO 07/07/20 09:00 07/06/20 14:24 DC Cariprazine (Vraylar) 3 mg DAILY PO 07/09/20 09:00 07/10/20 13:49 DC 07/09/20 08:17 Diphenhydramine HCl (Benadryl) 50 mg STAT STAT IM 07/10/20 03:26 07/10/20 03:43 DC 07/10/20 03:50 Diphenhydramine HCl (Benadryl) 50 mg STAT STAT PO 07/09/20 15:12 07/09/20 15:16 DC 07/09/20 15:20 Folic Acid (Folic Acid) 1 mg DAILY PO 07/05/20 09:00 07/17/20 09:00 Haloperidol (Haldol) 5 mg STAT STAT PO 07/04/20 18:10 07/04/20 18:12 DC 07/04/20 18:17 Haloperidol (Haldol) 10 mg STAT STAT IM 07/10/20 03:26 07/10/20 03:43 DC 07/10/20 03:50 Haloperidol (Haldol) 10 mg STAT STAT PO 07/09/20 15:12 07/09/20 15:15 DC 07/09/20 15:20 Home Med (Med Rec Complete!) ASDIRECTED XX 07/04/20 20:45 07/04/20 20:50 DC [place] Carbonate (Eskalith-Cr) 900 mg QHS PO 07/05/20 21:00 07/17/20 20:35 Lorazepam (Ativan) 1 mg Q4H PRN PO agitation/anxiety 07/04/20 22:30 07/13/20 11:30 Lorazepam (Ativan) 2 mg ASDIRECTED PRN PO SEE PROTOCOL 07/04/20 22:30 Lorazepam (Ativan) 2 mg STAT STAT IM 07/10/20 03:26 07/10/20 03:43 DC 07/10/20 03:45 Lorazepam (Ativan) 2 mg STAT STAT PO 07/09/20 15:12 07/09/20 15:16 DC 07/09/20 15:20 Lorazepam (Ativan) 2 mg STAT STAT PO 07/04/20 18:10 07/04/20 18:12 DC 07/04/20 18:17 Lurasidone HCl (Latuda) 80 mg DAILY PO 07/05/20 09:00 07/06/20 14:24 DC 07/06/20 08:26 Magnesium Hydroxide (Milk Of Magnesia) 30 ml DAILYPRN PRN PO CONSTIPATION 07/04/20 22:30 Multivitamins (Theragram-M) 1 tab DAILY PO 07/05/20 09:00 07/17/20 09:01 Olanzapine (ZyPREXA ZYDIS) 10 mg Q4HP PRN PO AGITATION/ANXIETY 07/04/20 22:30 07/15/20 10:42 Quetiapine Fumarate (SEROquel) 50 mg QHS PO 07/04/20 21:00 07/13/20 14:56 DC 07/12/20 20:23 Quetiapine Fumarate (SEROquel) 100 mg QHS PO 07/10/20 21:00 07/13/20 14:21 DC 07/12/20 20:23 Quetiapine Fumarate (SEROquel) 200 mg QHS PO 07/13/20 21:00 07/17/20 10:30 DC 07/16/20 20:27 Quetiapine Fumarate (SEROquel) 300 mg QHS PO 07/17/20 21:00 07/17/20 20:36 Thiamine HCl (Thiamine HCl) 100 mg BID PO 07/04/20 21:00 07/07/20 09:01 DC 07/07/20 08:25 Trazodone HCl (Desyrel) 50 mg QHSP PRN PO INSOMNIA 07/04/20 22:30 07/17/20 20:35 Allergies Coded Allergies: risperidone (Verified Allergy, Severe, ANAPHYLAXIS, 07/05/20) JUAN GRIER MD Jul 17, 2020 21:11
[2020-07-18 06:39] VITALS: BP 110/62
[2020-07-18] MEDS: MULTIVITAMINS/MINERALS THERAP 1 TAB PO SCH (08:15)
[2020-07-18] MEDS: AMANTADINE 100MG TABLET PO SCH (08:16)
[2020-07-18] MEDS: BENZTROPINE 0.5 MG TAB PO SCH ×2 (08:16→20:03)
[2020-07-18] MEDS: FOLIC ACID 1 MG TAB PO SCH (08:16)
[2020-07-18] MEDS: OLANZapine ORAL DISINTEGRATING TAB 5MG PO PRN (08:56)
[2020-07-18] MEDS: LORazepam 1 MG TAB PO PRN ×2 (08:56→15:45)
[2020-07-18 16:31] VITALS: BP 144/84
[2020-07-18] MEDS: QUEtiapine FUMARATE 100 MG TAB PO SCH (20:03)
[2020-07-18] MEDS: traZODone 50 MG TAB PO PRN (20:04)
[2020-07-18] MEDS: LITHIUM CARBONATE 450 MG **CR** TAB PO SCH (20:04)
[2020-07-19 06:51] VITALS: BP 121/71
[2020-07-19] MEDS: MULTIVITAMINS/MINERALS THERAP 1 TAB PO SCH (08:27)
[2020-07-19] MEDS: OLANZapine ORAL DISINTEGRATING TAB 5MG PO PRN (08:28)
[2020-07-19] MEDS: AMANTADINE 100MG TABLET PO SCH (08:28)
[2020-07-19] MEDS: FOLIC ACID 1 MG TAB PO SCH (08:29)
[2020-07-19] MEDS: BENZTROPINE 0.5 MG TAB PO SCH ×2 (08:29→20:26)
[2020-07-19] MEDS: LORazepam 1 MG TAB PO PRN ×2 (10:35→20:26)
[2020-07-19 16:26] VITALS: BP 121/60
[2020-07-19] MEDS: QUEtiapine FUMARATE 100 MG TAB PO SCH (20:26)
[2020-07-19] MEDS: traZODone 50 MG TAB PO PRN (20:26)
[2020-07-19] MEDS: LITHIUM CARBONATE 450 MG **CR** TAB PO SCH (20:26)
[2020-07-20 06:50] VITALS: BP 109/54
[2020-07-20] MEDS: FOLIC ACID 1 MG TAB PO SCH (08:15)
[2020-07-20] MEDS: BENZTROPINE 0.5 MG TAB PO SCH ×2 (08:16→20:21)
[2020-07-20] MEDS: MULTIVITAMINS/MINERALS THERAP 1 TAB PO SCH (08:16)
[2020-07-20] MEDS: AMANTADINE 100MG TABLET PO SCH (08:16)
--- NOTE | 2020-07-20 16:32 | MHIPNPDOC ---
[facility] Progress Note Progress Note DATE OF SERVICE: 07/20/20 Subjective: 25 year old male with a history of Schizophrenia who was brought into the [facility] ED by police, activated by 911 for being in a disorganized/manic state. Rosa continues to engage in group programming activities on the unit and has improved his interaction with both staff and peers. States that his mood is a lot better than before and he appears much less internally preoccupied; His hygiene and ADLs are improved; states that sleep has been restful for him the past two nights. Excited about leaving tomorrow! Objective: Patient was seen and evaluated, he is alert and oriented times three, cognition good, good eye contact, cooperative with assessment, normal body habitus, appears stated age, no psychomotor abnormalities; Speech is normal in production, rate and volume; TP are more organized, concrete, goal directed; Mood: pretty good, affect: bright/pleasant; TC: some paranoid delusions still present but have decreased in intensity; denies any current passive or active suicidal or homicidal ideation, intent or plan; denies AH/VH/TH but does still appear somewhat still internally preoccupied, responding to internal stimuli; insight, impulse control and judgment are fair/improving relative to when he was first admitted. A/P: 25 year old male with a history of Schizophrenia who was brought into the [facility] ED by police, activated by 911 for being in a disorganized/manic state. 1) Extensive psychoeducation given in terms of all risks, benefits and alt ernatives to all modalities of treatment and he vocalized understanding. 2) [place] continued at 900 mg qhs; level drawn; it is slightly subtherapeutic at 0.56. Seroquel continued at 300 mg qhs to better help alleviate psychotic sxs 3) Continue to encourage group participation in community milieu with other peers 4) Continue to collaborate with treatment team and Hospitalist on unit 5) He will be discharged to his mothers residence, with aftercare in place, on 07/21/20. Total time spent: 30 minutes Vital Signs Vital Signs Date Time Temp Pulse Resp B/P (MAP) Pulse Ox O2 Delivery O2 Flow Rate FiO2 07/20/20 06:50 98.7 76 14 109/54 (72) 97 Room Air Current Medications Current Medications Medications (Trade) Dose Ordered Sig/Shante Route PRN Reason Start Time Stop Time Status Last Admin Dose Admin Acetaminophen (Tylenol Tab) 650 mg Q6HP PRN PO HEADACHE or DISCOMFORT 07/04/20 22:30 07/18/20 08:16 Al Hydrox/Mg Hydrox/Simethicone (Mylanta) 30 ml Q4HP PRN PO HEARTBURN/INDIGESTION 07/04/20 22:30 07/09/20 05:18 Amantadine HCl (Symmetrel) 100 mg DAILY PO 07/05/20 09:00 07/20/20 08:16 Benztropine Mesylate (Cogentin) 0.5 mg BID PO 07/04/20 21:00 07/20/20 08:16 Carbamide Peroxide (Debrox) 10 drop BID AU 07/05/20 17:00 07/10/20 09:01 DC 07/09/20 08:17 Cariprazine (Vraylar) 1.5 mg DAILY PO 07/06/20 14:15 07/08/20 13:42 DC 07/08/20 08:43 Cariprazine (Vraylar) 1.5 mg DAILY PO 07/07/20 09:00 07/06/20 14:24 DC Cariprazine (Vraylar) 3 mg DAILY PO 07/09/20 09:00 07/10/20 13:49 DC 07/09/20 08:17 Diphenhydramine HCl (Benadryl) 50 mg STAT STAT IM 07/10/20 03:26 07/10/20 03:43 DC 07/10/20 03:50 Diphenhydramine HCl (Benadryl) 50 mg STAT STAT PO 07/09/20 15:12 07/09/20 15:16 DC 07/09/20 15:20 Folic Acid (Folic Acid) 1 mg DAILY PO 07/05/20 09:00 07/20/20 08:15 Haloperidol (Haldol) 5 mg STAT STAT PO 07/04/20 18:10 07/04/20 18:12 DC 07/04/20 18:17 Haloperidol (Haldol) 10 mg STAT STAT IM 07/10/20 03:26 07/10/20 03:43 DC 07/10/20 03:50 Haloperidol (Haldol) 10 mg STAT STAT PO 07/09/20 15:12 07/09/20 15:15 DC 07/09/20 15:20 Home Med (Med Rec Complete!) ASDIRECTED XX 07/04/20 20:45 07/04/20 20:50 DC [place] Carbonate (Eskalith-Cr) 900 mg QHS PO 07/05/20 21:00 07/19/20 20:26 Lorazepam (Ativan) 1 mg Q4H PRN PO agitation/anxiety 07/04/20 22:30 07/19/20 20:26 Lorazepam (Ativan) 2 mg ASDIRECTED PRN PO SEE PROTOCOL 07/04/20 22:30 Cancel Lorazepam (Ativan) 2 mg STAT STAT IM 07/10/20 03:26 07/10/20 03:43 DC 07/10/20 03:45 Lorazepam (Ativan) 2 mg STAT STAT PO 07/09/20 15:12 07/09/20 15:16 DC 07/09/20 15:20 Lorazepam (Ativan) 2 mg STAT STAT PO 07/04/20 18:10 07/04/20 18:12 DC 07/04/20 18:17 Lurasidone HCl (Latuda) 80 mg DAILY PO 07/05/20 09:00 07/06/20 14:24 DC 07/06/20 08:26 Magnesium Hydroxide (Milk Of Magnesia) 30 ml DAILYPRN PRN PO CONSTIPATION 07/04/20 22:30 Multivitamins (Theragram-M) 1 tab DAILY PO 07/05/20 09:00 07/20/20 08:16 Olanzapine (ZyPREXA ZYDIS) 10 mg Q4HP PRN PO AGITATION/ANXIETY 07/04/20 22:30 07/19/20 08:28 Quetiapine Fumarate (SEROquel) 50 mg QHS PO 07/04/20 21:00 07/13/20 14:56 DC 07/12/20 20:23 Quetiapine Fumarate (SEROquel) 100 mg QHS PO 07/10/20 21:00 07/13/20 14:21 DC 07/12/20 20:23 Quetiapine Fumarate (SEROquel) 200 mg QHS PO 07/13/20 21:00 07/17/20 10:30 DC 07/16/20 20:27 Quetiapine Fumarate (SEROquel) 300 mg QHS PO 07/17/20 21:00 07/19/20 20:26 Thiamine HCl (Thiamine HCl) 100 mg BID PO 07/04/20 21:00 07/07/20 09:01 DC 07/07/20 08:25 Trazodone HCl (Desyrel) 50 mg QHSP PRN PO INSOMNIA 07/04/20 22:30 07/19/20 20:26 Allergies Coded Allergies: risperidone (Verified Allergy, Severe, ANAPHYLAXIS, 07/05/20) JUAN GRIER MD Jul 20, 2020 16:32
[2020-07-20 18:07] VITALS: BP 124/80
[2020-07-20] MEDS: LITHIUM CARBONATE 450 MG **CR** TAB PO SCH (20:21)
[2020-07-20] MEDS: traZODone 50 MG TAB PO PRN (20:21)
[2020-07-20] MEDS: QUEtiapine FUMARATE 100 MG TAB PO SCH (20:21)
[2020-07-21 06:00] VITALS: BP 145/69
[2020-07-21] MEDS: AMANTADINE 100MG TABLET PO SCH (08:27)
[2020-07-21] MEDS: MULTIVITAMINS/MINERALS THERAP 1 TAB PO SCH (08:27)
[2020-07-21] MEDS: BENZTROPINE 0.5 MG TAB PO SCH (08:27)
[2020-07-21] MEDS: FOLIC ACID 1 MG TAB PO SCH (08:27)
[2020-07-21] MEDS: LORazepam 1 MG TAB PO PRN (13:36)
[2020-07-21] MEDS ORDERED: QUET100T2 PO (14:07)
[2020-07-21] MEDS ORDERED: AMAN100T PO (14:07)
[2020-07-21] MEDS ORDERED: LITH45TASA PO (14:07)
[2020-07-21] MEDS ORDERED: BENZ0.5T23 PO (14:07)
--- NOTE | 2020-07-22 14:25 | MHDSPDOC ---
[facility] Discharge Summary Discharge Summary DATE OF ADMISSION: Jul 04, 2020 at 22:39 DATE OF DISCHARGE: Jul 21, 2020 at 15:42 DISCHARGE DIAGNOSES: Schizoaffective disorder, Bipolar type Cannabis use disorder, moderate type REASON FOR ADMISSION: 25 year old male with a history of Schizoaffective disorder, Bipolar type who was brought into the [facility] ED by police, activated by 911 for being in a disorganized/manic state. CONSULTANTS INVOLVED: Hospitalist/Software Licensing Analyst and automobile and property underwriter/Psychiatrist HOSPITAL COURSE/TREATMENT AND PROGRESS ON THE UNIT: Initially, upon first coming to the unit, Rosa was very distractible exhibiting both disorganized thought processes and behavior; He was in a manic state and was very hard to redirect. Psychotropic medication was started in which he was prescribed Seroquel which was gradually titrated to 300 mg at bedtime for mood/psychotic symptoms and [place]ate which was titrated to 900 mg at bedtime, yielding a therapeutic level of 0.56. Cogentin was started at 0.5 mg twice daily to prevent any EPS; AIMS were routinely conducted, with scores of zero. He participated in both individual and group psychotherapy programming while on the inpatient Psychiatric unit. His mood and affect greatly improved/stabilized after approximately seven days. He was then converted to Voluntary legal status from 939 status. Rosa is now at his functional baseline and is ready for discharge at this time. He adamantly denied any passive or active suicidal or homicidal ideation, intent or plan throughout the course of his hospitalization. Risks have been mitigated by this inpatient Psychiatric hospitalization. DISCHARGE ASSESSMENT: Rosa was initially hospitalized, due to being in a manic/psychotic state due to being off all of his psychotropic medications. Now that he is compliant with his medication regimen, his symptoms have greatly abated in intensity. MENTAL STATUS EXAMINATION ON DISCHARGE: He was seen and evaluated, alert and oriented times three, cognition good, hygiene improved, good eye contact, wearing casual clothes, no psychomotor abnormalities. Speech is normal in production, rate and volume. Thought processes are goal directed and linear. Mood: much better, thanks, affect: bright, congruent to mood; Thought content: no delusional themes; denies any current passive or active suicidal or homicidal ideation, intent or plan; denies any AH/VH/TH; insight, impulse control and judgment are fair/improved. MEDICATIONS ON DISCHARGE: (7 day supply with 4 refills) Seroquel 300 mg at bedtime [place] 900 mg at bedtime Cogentin 0.5 mg twice daily PLAN/FOLLOWUP ARRANGEMENTS: Extensive psychoeducation was given to Rosa in regards to all risks, benefits and alternatives to all modalities of treatment and he vocalized full understanding. He was given a 7 day supply with 4 refills for Seroquel 300 mg qhs, [place] Carbonate 900 mg qhs and Cogentin 0.5 mg BID. Discharge planners gave him a follow up behavioral health appointment for 07/24/20. He was instru cted to call 911 or go to the nearest ER if he begins to experience any passive or active suicidal/homicidal ideation, intent or plan or if he starts to experience a decompensation in reference to his psychiatric symptoms. Rosa was in full agreement with this plan. The amount of time spent in the coordination of care for this patient was approximately 90 minutes. Vital Signs/I&Os Vital Signs Date Time Temp Pulse Resp B/P (MAP) Pulse Ox O2 Delivery O2 Flow Rate FiO2 07/21/20 06:00 96.5 96 18 145/69 (94) 98 Room Air Medications Scheduled Amantadine HCl (Amantadine) 100 Mg Tablet, 100 MG PO DAILY for Prevention of side effects, #7 Benztropine Mesylate (Benztropine Mesylate) 0.5 Mg Tablet, 0.5 MG PO BID for Prevention of side effects, #14 [place] Carbonate ([place] Carbonate ER) 450 Mg Tablet.er, 900 MG PO QHS for MOOD, (Reported) [place] Carbonate ([place] Carbonate ER) 450 Mg Tablet.er, 900 MG PO QHS for Mood stabilization, #14 Quetiapine Fumarate (Quetiapine Fumarate) 100 Mg Tablet, 300 MG PO QHS for Mood stabilization, #7 Allergies Coded Allergies: risperidone (Verified Allergy, Severe, ANAPHYLAXIS, 07/05/20) JUAN GRIER MD Jul 22, 2020 14:25
== END 2020-07-21 15:42 | disposition home or self-care (01) | DRG 750 ==
LOC: EDBD 16:12 → M ED 16:12 → M ED INP 22:39 → M PSY 07-05 02:12
PROVIDERS: ADMIT Psychiatry & Neurology Psychiatry; ATTEND Psychiatry & Neurology Geriatric Psychiatry
DX: F25.0 Schizoaffective disorder, bipolar type (principal); F17.200 Nicotine dependence, unspecified, uncomplicated; F12.90 Cannabis use, unspecified, uncomplicated; Z79.899 Other long term (current) drug therapy; Z88.8 Allergy status to other drugs, medicaments and biological substances; H61.23 Impacted cerumen, bilateral